=== PATIENT | female | born 1975 | race Caucasian/White ===

== ENCOUNTER 2016-05-01 08:57 | Emergency (ER) | payer OTHER ==
[~2016-05-01] VITALS: Ht 175.3 cm; Wt 91.4 kg
[~2016-05-01 08:57] MED LIST: CELE100C PO; CYCL-36 PO; LORT5TAB PO; NEXI20CA PO; TRAZ50TA4 PO
[2016-05-01 09:01] VITALS: BP 128/94; PULSE 97; RESP 16; TEMP 98.1; O2SAT 98
[2016-05-01] MEDS ORDERED: PRIS50TA PO (09:23)
[2016-05-01] MEDS ORDERED: CELE100C PO (09:23)
--- NOTE | 2016-05-01 09:35 | PD ---
HPI Chief Complaint: Cold / Flu Symptoms Time Seen by Provider: 09:33 Travel History International Travel<30 days: No Contact w/Intl Traveler<30days: No Traveled to known affect area: No History of Present Illness HPI Patient presents with complaints of mild dyspnea and subjective fever since . Denies nausea vomiting or diarrhea. No new rashes. Reports concerns of bleach exposure, states a colleague cleaned with 90% bleach and 10% water and that was overwhelming and caused an episode of nausea and vomiting. No tobacco exposure. No history of lung disease. PFSH Past Medical History Hx Anticoagulant Therapy: No Anxiety: Yes Depression: Yes Cerebrovascular Accident: Yes (CVA) Diabetes: No Diminished Hearing: No Gastrointestinal Disorders: Yes (GASTRIC BYPASS 2005) Headaches: Yes Hypertension: Yes Musculoskeletal: Yes (FIBROMYALGIA) Neurologic: Yes (LAM'S PALSEY/TIA?) Tetanus Vaccination: < 5 Years Influenza Vaccination: No ?: Not LMP: 09/2010 Menopausal: Yes : 2 Para: 2 Tubal Ligation: Yes Past Surgical History Abdominal Surgery: Yes (GASTRIC BYPASS-HERNIA REPAIR) Section: Yes (X2) Cholecystectomy: Yes Eye Surgery: Yes (LASIK ) Social History Alcohol Use: Yes (OCCAS. WINE; 1 week ago) Tobacco Use: Yes ("social smoker") Substance Use: No Allergies-Medications (Allergen,Severity, Reaction): Coded Allergies: Tramadol (Verified Allergy, Severe, 05/01/16) Reported Meds & Prescriptions Reported Meds & Active Scripts Active Reported Celebrex (Celecoxib) 100 Mg Cap 100 Mg PO DIRECTED Pristiq 24 HR (Desvenlafaxine ER 24 HR) 50 Mg Tab 50 Mg PO DAILY Review of Systems General / Constitutional: No: Fever Eyes: No: Visual changes HENT: No: Headaches Cardiovascular: No: Chest Pain or Discomfort Respiratory: Positive: Cough, Shortness of Breath Gastrointestinal: No: Abdominal Pain Genitourinary: No: Dysuria Musculoskeletal: No: Pain Skin: No Rash Neurologic: No: Weakness Psychiatric: No: Depression Endocrine: No: Polydipsia Hematologic/Lymphatic: No: Easy Bruising Physical Exam Narrative GENERAL: Well-nourished, well-developed patient. SKIN: Warm and dry. HEAD: Normocephalic. EYES: No scleral icterus. No injection or drainage. NECK: Supple, trachea midline. No JVD or lymphadenopathy. CARDIOVASCULAR: Regular rate and rhythm without murmurs, gallops, or rubs. RESPIRATORY: Breath sounds equal bilaterally. No accessory muscle use. GASTROINTESTINAL: Abdomen soft, non-tender, nondistended. MUSCULOSKELETAL: No cyanosis, or edema. BACK: Nontender without obvious deformity. No CVA tenderness. Data Data Last Documented VS Vital Signs Date Time Temp Pulse Resp B/P Pulse Ox O2 Delivery O2 Flow Rate FiO2 05/01/16 09:18 18 98 Room Air 05/01/16 09:01 98.1 97 128/94 Orders Chest, Single Ap (05/01/16 ) [facility] Medical Decision Making Medical Screen Exam Complete: Yes Emergency Medical Condition: Yes Differential Diagnosis Bacterial pneumonia, aspiration pneumonia, upper respiratory infection Narrative Course Assessment and plan discussed with patient at bedside Diagnosis Primary Impression: Cough Patient Instructions: General Instructions Additional Instructions: Rest fluids and Motrin, antibiotic and cough suppressant as prescribed. Follow- up with PCP. Med/Other Pt SpecificInfo: Prescription(s) given Scripts Guaifenesin-Codeine Liq (Cheratussin AC Liq)100-10 Mg/5 Ml Syrp5-10 Ml PO Q4H PRN (COUGH AND COLD SYMPTOMS) #120 ML Ref 0 Do not exceed 6 doses/24 hrs. Prov:Walter Zhang MD 05/01/16 Azithromycin (Zithromax Z-Epifanio)250 Mg [id number] Mg PO DIRECTED #1 DSPK Ref 0 500 MG (2 tabs) day 1, then 1 tab days 2-5. Prov:Walter Zhang MD 05/01/16 Disposition: 01 DISCHARGE HOME Condition: Good Walter Zhang MD May 01, 2016 09:35
--- NOTE | 2016-05-01 09:49 | RADHPO ---
EXAM DATE/TIME: 05/01/2016 09:26 [facility] COMPARISON: No previous studies available for comparison. INDICATIONS : Nausea, cough and short of breath. MEDICAL HISTORY : None. SURGICAL HISTORY : None. ENCOUNTER: Initial ACUITY: 3 days PAIN SCORE: 3/10 LOCATION: Bilateral chest FINDINGS: A single view of the chest demonstrates the lungs to be symmetrically aerated without evidence of mas s, infiltrate or effusion. The cardiomediastinal contours are unremarkable. Osseous structures are intact. CONCLUSION: No acute disease. Damien Taveras MD on May 01, 2016 at 9:47 Board Certified Radiologist. This report was verified electronically.
[2016-05-01] MEDS ORDERED: CHERSYP2 PO (10:02)
[2016-05-01] MEDS ORDERED: ZITHTAB PO (10:02)
== END 2016-05-01 10:20 | disposition home or self-care (01) ==
LOC: PHED 08:57
DX: R05 Cough (principal); I10 Essential (primary) hypertension; M79.7 Fibromyalgia; Z86.73 Personal history of transient ischemic attack (TIA), and cerebral infarction without residual deficits; Z72.0 Tobacco use
CPT/HCPCS: 71010; 99284

== ENCOUNTER 2017-01-04 15:07 | Emergency (ER) | payer OTHER ==
[~2017-01-04] VITALS: Ht 172.7 cm; Wt 89.0 kg
[~2017-01-04 15:07] MED LIST changes: +CHERSYP2 PO; -CYCL-36 PO; -LORT5TAB PO; -NEXI20CA PO; +PRIS50TA PO; -TRAZ50TA4 PO; +ZITHTAB PO
[2017-01-04 15:11] VITALS: BP 123/88; PULSE 96; RESP 14; TEMP 99.1; O2SAT 97
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
[2017-01-04] MEDS ORDERED: PRED20 PO (15:59)
[2017-01-04] MEDS ORDERED: predniSONE 20 MG TAB PO ONE (16:00)
[2017-01-04] MEDS ORDERED: KETOROLAC TROMETHAMINE 60 MG/2 ML (IM) VIAL IM ONE (16:00)
== END 2017-01-04 16:05 | disposition home or self-care (01) ==
LOC: NEPK 15:07
DX: S39.012A Strain of muscle, fascia and tendon of lower back, initial encounter (principal); V89.2XXA Person injured in unspecified motor-vehicle accident, traffic, initial encounter
CPT/HCPCS: 96372; 99284; J1885; J7512

== ENCOUNTER → 2017-07-12 | Outpatient (CLI) | payer OTHER ==
[~2017-07-12] MED LIST changes: +DULO20 PO; +HYDR-3580 PO; +MELO7.5T27 PO; +OXYC1CAP PO; +PRED20 PO; +REST15CA PO; +TRAZ100T10 PO
[2017-07-12 08:50] LABS: EOSINOPHIL # 0.2 TH/MM3 (0-0.4); EOSINOPHIL % 4.4 % (0.0-4.0); HEMATOCRIT 38.3 % (35.0-46.0); HEMOGLOBIN 12.8 GM/DL (11.6-15.3); LYMPH % 36.2 % (9.0-44.0); LYMPHOCYTE # 1.5 TH/MM3 (1.0-4.8); MEAN CELL VOLUME 91.7 FL (80.0-100.0); MEAN CORPUSCULAR HEMOGLOBIN 30.6 PG (27.0-34.0); MEAN CORPUSCULAR HGB CONC 33.4 % (32.0-36.0); MEAN PLATELET VOLUME 8.1 FL (7.0-11.0); MONO % 9.2 % (0.0-8.0); MONOCYTE # 0.4 TH/MM3 (0-0.9); NEUT % 49.2 % (16.0-70.0); PLATELET COUNT 232 TH/MM3 (150-450); RED BLOOD COUNT 4.18 MIL/MM3 (4.00-5.30); RED CELL DISTRIBUTION WIDTH 13.9 % (11.6-17.2); WHITE BLOOD COUNT 4.1 TH/MM3 (4.0-11.0)
[2017-07-12 08:56] LABS: BACTERIA, URINE RARE /hpf; BILIRUBIN, URINE NEG (NEG); BLOOD, URINE TRACE (NEG); GLUCOSE,URINE NEG (NEG); KETONE, URINE NEG (NEG); MUCUS URINE FEW /lpf (OCC); NITRITE,URINE NEG (NEG); PH, URINE 7.5 (5.0-8.5); SQUAMOUS EPITHELIAL CELL URINE 3 /hpf (0-5); URINE COLOR YELLOW (YELLW/STRAW); URINE LEUKOCYTE ESTERASE NEG (NEG)
[2017-07-12 08:59] LABS: INTERNATIONAL NORMALIZED RATIO 1.1 RATIO; PROTHROMBIN TIME - PATIENT 10.7 SEC (9.8-11.6)
[2017-07-12 09:24] LABS: ALBUMIN 3.7 GM/DL (3.4-5.0); AST (GOT) 38 U/L (15-37); BICARBONATE 28.6 MEQ/L (21.0-32.0); BLOOD UREA NITROGEN 8 MG/DL (7-18); CALCIUM 8.7 MG/DL (8.5-10.1); CHLORIDE 107 MEQ/L (98-107); CREATININE 0.71 MG/DL (0.50-1.00); GLOMERULAR FILTRATION RATE 89 ML/MIN (>89); GLUCOSE,FASTING 83 MG/DL (74-99); SODIUM (NA) 142 MEQ/L (136-145)
[2017-07-12 09:25] LABS: ALT (GPT) 80 U/L (10-53)
[2017-07-12 09:27] LABS: ALKALINE PHOSPHATASE 115 U/L (45-117); TOTAL BILIRUBIN ADULT 0.5 MG/DL (0.2-1.0); TOTAL PROTEIN 6.8 GM/DL (6.4-8.2)
--- NOTE | 2017-07-12 10:15 | RADRPT ---
EXAM DATE/TIME: 07/12/2017 09:19 [facility] COMPARISON: CHEST SINGLE AP, May 01, 2016, 9:26. INDICATIONS : Evaluate for pneumonia, pneumothorax or communicable disease. Pre op lumbar laminectomy. MEDICAL HISTORY : None. SURGICAL HISTORY : None. ENCOUNTER: Initial ACUITY: 1 day PAIN SCORE: 0/10 LOCATION: Bilateral chest FINDINGS: PA and lateral views of the chest demonstrate the lungs to be symmetrically aerated without evidence of mass, infiltrate or effusion. The cardiomediastinal contours are unremarkable. Osseous structure s are intact. CONCLUSION: No acute disease. Roberto Lea MD on July 12, 2017 at 10:13 Board Certified Radiologist. This report was verified electronically.
== END ==
LOC: CPRE 08:16
PROVIDERS: ATTEND Neurological Surgery
DX: Z01.812 Encounter for preprocedural laboratory examination (principal); Z01.818 Encounter for other preprocedural examination; M43.10 Spondylolisthesis, site unspecified
CPT/HCPCS: 36415; 71046; 80053; 81001; 85025; 85610; 85730; 87640; 87641

== ENCOUNTER 2017-07-25 06:48 | Inpatient (IN) | payer OTHER ==
[~2017-07-25] VITALS: Ht 175.3 cm; Wt 91.9 kg
[~2017-07-25 06:48] MED LIST changes: -CELE100C PO; -CHERSYP2 PO; -PRED20 PO; -PRIS50TA PO; -ZITHTAB PO
[2017-07-25] MEDS ORDERED: LACTATED RINGER'S 1000 ML IV PRN (07:15)
[2017-07-25] MEDS ORDERED: CHLORHEXIDINE GLUCONATE 2 % 1 PACK (2 CLOTHS) TOPICAL PRN (07:15)
[2017-07-25] MEDS ORDERED: SODIUM CHLORID 0.9% 500 ML IV PRN (07:15)
[2017-07-25] MEDS ORDERED: POVIDONE IODINE 5% (ANTISEPSIS KIT) 4 APPLICATIONS EACH NARE PRN (07:15)
[2017-07-25] MEDS ORDERED: METOPROLOL TARTRATE 25 MG TAB PO PRN (07:15)
[2017-07-25] MEDS ORDERED: VANCOMYCIN 1 GM/200 ML PREMIX ON-CALL IV SCH (07:15)
[2017-07-25] MEDS ORDERED: ARTIFICIAL TEARS OPTH OINT 3.5 APPLIC/3.5 GM TUBO ONE (07:29)
[2017-07-25] MEDS ORDERED: ACETAMINOPHEN 1000 MG/100 ML 100 ML IV ONE ×2 (07:29→14:43)
[2017-07-25] MEDS ORDERED: PROPOFOL 500 MG/50 ML INJ 150 ML ONE (07:29)
[2017-07-25] MEDS ORDERED: THROMBIN (TOPICAL) 5,000 UNIT VIAL ONE ×2 (08:32→10:04)
[2017-07-25] MEDS ORDERED: GELFOAM SIZE 100 ONE (08:32)
[2017-07-25] MEDS ORDERED: GENTAMICIN SULFATE 80 MG/2 ML VIAL ONE (08:33)
[2017-07-25] MEDS ORDERED: VANCOMYCIN HCL 1000 MG VIAL ONE (09:12)
[2017-07-25] MEDS ORDERED: ceFAZolin 2 GM PREMIX 50 ML ONE (09:13)
[2017-07-25] MEDS ORDERED: BUPIVACAINE HCL PF 0.5% 30 ML VIAL ONE (09:13)
[2017-07-25] MEDS ORDERED: DEXAMETHASONE SOD PHOS 4 MG/ML VIAL IV ONE (12:00)
[2017-07-25] MEDS ORDERED: LACTATED RINGER'S 1000 ML INJ 2,000 ML IV ONE (12:00)
[2017-07-25] MEDS ORDERED: LIDOCAINE HCL 1% PF 5 ML SYRINGE OTHER ONE (12:00)
[2017-07-25] MEDS ORDERED: ROCURONIUM INJ 50 MG/5 ML SYRINGE IV PUSH ONE (12:00)
[2017-07-25] MEDS ORDERED: PROPOFOL 200 MG/20 ML AMP IV ONE (12:00)
[2017-07-25] MEDS ORDERED: ONDANSETRON HCL 4 MG/2 ML VIAL IV ONE (12:00)
[2017-07-25] MEDS ORDERED: PHENYLEPH/NS 1000 MCG/10 ML SYR IV ONE (12:00)
[2017-07-25] MEDS ORDERED: NALOXONE HCL 0.4 MG/ML AMP IV PUSH PRN (13:45)
[2017-07-25] MEDS ORDERED: diphenhydrAMINE HCL 50 MG/ML VIAL IV PUSH PRN (13:45)
[2017-07-25] MEDS ORDERED: DO NOT ADM ANY ANTICOAGULANT DRUGS PRN (13:48)
[2017-07-25] MEDS: PCA - TOTAL MG DILAUDID DELIVERED PER SHIFT SCH ×2 (14:00→22:00)
[2017-07-25] MEDS ORDERED: *morphine SULFATE 4 MG/ML PERIprocedure ONLY ONE ×3 (14:10→14:30)
[2017-07-25] MEDS ORDERED: *MEPERIDINE 25 MG INJ VIAL PERIprocedural Use ONLY ONE (14:19)
--- NOTE | 2017-07-25 14:22 | PD.OP ---
Operative Report Date of Surgery: July 25, 2017 Preoperative Diagnosis: L4-5 spondylolisthesis Postoperative Diagnosis: L4-5 spondylolisthesis Procedure: L4-L5 laminectomy, interbody arthrodhesis using PEEK cage and autologous bone graft, L4-L5 instrumental fixation using transpedicular screws and rods, L4-L5 posterolateral fusion using autologous bone graft and demineralized bone matrix. Microsurgical dissection Anesthesia: general Surgeon: Des Vega Traffic Routing Engineer(s): Sheryl Spain Operation and Findings: INDICATIONS FOR THE SURGICAL PROCEDURE Ms Machuca is a 42 year-old female who presented with intractable mechanical back pain and ariane evidence of L5 lower extremity radiculopathy. The patient has failed maximum nonsurgical management including multiple modalities of conservative treatment as well as pain management interventions by an interventional pain specialist. A surgical decompression and arthrodhesis were indicated as a last resort. The [id number] details of the procedure, indications, alternatives, risks and potential complications were fully discussed with the patient. The patient fully understood. All the questions were answered. No guarantees were given. The patient voiced requesting the procedure and provided informed consents. The patient was offered the alternative of delaying the procedure and continuing with nonsurgical management. DETAILS OF THE SURGICAL PROCEDURE Prior to the procedure, the surgical incision was marked in the preoperative surgical holding room, and the procedure, risks, and potential complications revisited with the patient. Placement of electrodes for intraoperative neurophysiological monitoring was completed. The patient was taken to the operative room, and following induction of general anesthesia, endotracheal intubation was performed. A Winn catheter, bilateral ARRON hose and sequential compression devices were placed and kept throughout the procedure. The patient was positioned prone, over a Benedict table over a bolsters. All pressure in the preoperative surgical holding room points were carefully padded with eggcrate and gel mattress. The eyes were tapped shut after ointment was applied by the anesthesiologist to prevent corneal abrasion. A Shanae hugger was placed over the expossed lower body to maintain control of the core body temperature. The electrophysiological team placed the needles and electrodes in their proper location and baseline SSEP's and EMG potentials were registered. The entrance to each pedicles was marked using a C arm. The lumbar region was prepped and draped in the usual sterile fashion. The surgical procedure was performed in several steps as follow: SURGICAL APPROACH Once the patient was positioned, a localizing cross-table lateral x-ray was performed with a C-arm. Two paramedian small incisions were outlined on the skin approximately 3cm from the midline. The skin incisions were made with a # 10 blade. Small bleeders were controlled with the cautery. The dissection was then carried out into deper planes and through the thoracolumbar fascia with a Bovie. The intermuscular septum was identified and the myscles were blunted dissected along the septum. The facets and transverse process of L4 and L5 were exposed and the proper anatomical landmarks were identified. A microsurgical self-retaining retractor was placed on the incision, and a localizing lateralizing cross-table x-ray was performed with an instrument underneath a lamina of L4. INSTRUMENTAL FIXATION At this point in the procedure, placement of bilateral transpedicular screws was necessary for stabilization of the spine. Initially, the entry point for the screw was selected anatomically at the junction of the facet, with the transverse process, and the pars interarticularis at L4 and L5. This was started with a Giamshetti needle followed by the use of a cutler wire. A tap was used to create the threads for the screws. Finally bilateral transpedicular screws were carefully placed bilaterally at L4, and L5 under fluoroscopic visualization. An appropriate purchase was achieved with all screws. The position of each screw was assessed anatomically with an AP, lateral , oblique Xrays. An intraoperative scan view of the spine was then performed using the iso-centric c-arm. Each screw was then assessed electrophysiologically stimulating each screw with a nerve stimulator. SURGICAL DECOMPRESSION There was significant mass effect with compression of the neural structures. In order to relieve neural compression, it was necessary to perform a decompressive laminectomy, with decompression of the spinal canal and bilateral lateral recesses. Note that the scope of such decompression was significantly more extensive than the minimal exposure necessary to perform an interbody fusion, as there was extreme facet arthropathy with near complete collapse of the disk spaces and severe stenosis cause by the hyperthrophic joint facets. At this point of the procedure the operative microscope was draped in the usual sterile fashion and brought to the field. The rest of the surgical procedure was performed using microdissection technique with the exception of the closure. Under the operating microscope, a decompressive laminectomy was carried out at L4-L5 as follow: The laminae, base of the spinous processes and facets were carefully drilled exposing the ligamentum flavum. The facets were abnormal with severe spondylolisthesis and gross mechanical instability. A large disk protusion was compressing the neural structures and exiting nerve roots. A near complete facetectomy was necessary resulting in further mechanical instability. The ligamentum flavum appeared hypertrophic, resulting on mass effect on the dorsal surface of the neural structures. The superior free border of the ligamentum flavum was elevated with a ligament dissector and the ligamentum flavum was removed with a 3 and 4 mm Kerrison forceps. The ligament was very adherent to the dural sac and during the dissection, and extreme care was taken during the dissection. The exiting nerve roots were identified, and a wide foraminotomy was performed with a Kerrison in their trajectory towards the neural foramen. Epidural veins located laterally to the dural sac were coagulated with the bipolar cautery, and then incised using microscissors. Gentle medial retraction of the dural sac allowed me to expose the disc space for the discectomy. Upon completion of the discectomy, an excellent decompression of the neural structures was achieved. INTERBODY ARTHRODHESIS In order to correct the narrowing of the disk space and maintain distraction of the space, and to achieve a solid interbody fusion, it was necessary the insertion of an interbody device into the disk space. Otherwise, the disk space would collapse, compromising the result of the surgical procedure. At this point of the procedure, the annulus fibrosus of the disk was carefully coagulated with a bipolar cautery and incised using an 11 bladed knife. Then, a microdiscectomy was carried out in a standard fashion using a combination of straight and up-biting pituitary forceps. A reverse angle curette was applied underneath the posterior longitudinal ligament, and used to push the disk fragments into the disk space, so they can be safely removed with a pituitary forceps. Once the discectomy was completed, it was necessary to decorticate the endplates, in order to eliminate the cartilaginous endplate and to expose healthy bone appropriate to perform the interbody fusion. The endplates at L4- L5 were then thoroughly decorticated using increasing size bone mar and ring curets, eliminating the cartilaginous fragments from both, the superior and inferior endplates. A disk space distractor was applied to the pedicle screws and gentle distraction was applied. This maneuver was assisted by the use of a disk distractor. Increased motility was noted at the disk, which was consistent with instability due to facet arthropathy. Once a thorough preparation of the disk space was achieved, the disk space was irrigated with antibiotic solution, and the interbody fusion was performed by carefully impacting an expandable PPEK cage filled with autologous bone graft. A solid position of the cage with good purchase was achieved. The position of the cage was assessed anatomically with a probe and radiologically with the C-arm. POSTEROLATERAL FUSION The posterolateral fusion is a critical component to the procedure, to prevent future fatigue and failure of the instrumental fixation. Initially, the transverse processes of the vertebral bodies, lateral surface of the facets and the lateral gutters of the spine were carefully cleaned, eliminating all soft tissue and muscle attachments. The area was then irrigated with a large amount of antibiotic solution. Subsequently, the transverse processes, lateral surface of the facets, and lateral gutters of the spine were thoroughly decorticated using the TPS drill with a 5mm cutting bhupendra, exposing cancellous bone, in preparation for the posterolateral fusion. The incision was again irrigated with antibiotic solution. Then, the posterolateral fusion was then performed by carefully packing the lateral gutters of the spine at L4-L5 with autologous bone combined with demineralized bone matrix. I packed as much bone as possible. COMPLETION OF THE INSTRUMENTATION AND CLOSURE The rods were brought to the field, applied to all the screws, and the screw caps were sequentially applied. Compression was performed between the pedicle screws, and final tightening of the screws was completed using a torque wrench. The incision was again thoroughly irrigated with several liters of antibiotic solution, and hemostasis secured with the bipolar cautery. A Valsalva Maneuver performed by the anesthesiologist failed to show any evidence of cerebrospinal fluid leak or bleeding. A 7 mm Benedict-Steward drain was left in the epidural space and externalized through a separate stab incision. The incision was then closed in planes. 0 Vicryl was used in an interrupted fashion to close the thoracolumbar fascia and the superficial fascia. The subcutaneous tissue was then approximated using 3-0 Vicryl in an interrupted fashion. Special care was taken to avoid space. The skin was then closed with 4-0 Vicryl in a running, subcuticular fashion. Dermabond was applied to the skin. Each plane of closure was irrigated with antibiotic solution. At the end of the procedure the sponge, needle and instrument counts were all correct. Estimated blood loss was 250 cc. No blood transfusion was given. The entire procedure was performed using continuous electrophysiological monitoring of the somatosensorial evoked potentials and EMG. The patient received prophylactic antibiotics. The patient was then extubated and transferred to the recovery room in stable condition. Des Vega MD July 25, 2017 14:22
[2017-07-25] MEDS: SODIUM CHLOR 0.9% 1000 ML INJ 1,000 ML IV SCH (14:24)
[2017-07-25] MEDS ORDERED: MIDAZOLAM HCL 2 MG/2 ML VIAL ONE (14:26)
[2017-07-25] MEDS ORDERED: ACETAMINOPHEN 325 MG TAB PO PRN (14:30)
[2017-07-25] MEDS ORDERED: MORPHINE SULFATE 4 MG/ML INJ IV PUSH PRN (14:30)
[2017-07-25] MEDS ORDERED: MAGNESIUM HYDROXIDE SUSP 30 ML CUP PO PRN (14:30)
[2017-07-25] MEDS ORDERED: RESP: ALBUTEROL 2.5 MG/3 ML NEB (PRN) INH (14:30)
[2017-07-25] MEDS ORDERED: MENTHOL LOZENGE BUCCAL PRN (14:30)
[2017-07-25] MEDS ORDERED: BISACODYL 10 MG SUPP RECTAL PRN (14:30)
[2017-07-25] MEDS ORDERED: cloNIDine HCL 0.1 MG TAB PO/NG PRN (14:30)
[2017-07-25] MEDS ORDERED: ONDANSETRON HCL 4 MG/2 ML VIAL IV PUSH PRN (14:30)
[2017-07-25] MEDS ORDERED: *HYDROmorphone PF 0.5 MG/0.5 ML PERIprocedure ONLY ONE ×2 (14:38→14:59)
--- NOTE | 2017-07-25 14:39 | RADRPT ---
EXAM DATE/TIME: 07/25/2017 10:02 [facility] COMPARISON: No previous studies available for comparison. INDICATIONS : L4-L5 posterior lumbar fusion. Level localization. MEDICAL HISTORY : None. SURGICAL HISTORY : None. ENCOUNTER: Initial ACUITY: 1 day PAIN SCORE: Non-responsive. LOCATION: Lumbar spine FINDINGS: A single lateral view is recorded digitally in the operating room using C-arm with localization pin i n place. CONCLUSION: Intraoperative image. Henry Stewart MD on July 25, 2017 at 14:37 Board Certified Radiologist. This report was verified electronically.
--- NOTE | 2017-07-25 14:39 | RADRPT ---
EXAM DATE/TIME: 07/25/2017 10:02 [place] COMPARISON: No previous studies available for comparison. INDICATIONS : Post-op L4-L5 posterior lumbar fusion. MEDICAL HISTORY : None. SURGICAL HISTORY : None. ENCOUNTER: Initial ACUITY: 1 day PAIN SCORE: Non-responsive. LOCATION: Lumbar spine. FINDINGS: 2 images are recorded digitally in the operating room using C-arm during placement of transpedicular screws and interspac device. CONCLUSION: Intraoperative images. Henry Stewart MD on July 25, 2017 at 14:37 Board Certified Radiologist. This report was verified electronically.
[2017-07-25] MEDS ORDERED: ACETAMINOPHEN 1000 MG/100 ML 100 ML IV PRN (15:45)
[2017-07-25] MEDS ORDERED: *LABETALOL HCL 100 MG/20 ML VIAL PERIprocedural Use ONLY ONE (15:46)
[2017-07-25] MEDS: CYCLOBENZAPRINE HCL 10 MG TAB PO PRN (16:01)
[2017-07-25] MEDS: ceFAZolin 2 GM PREMIX 50 ML IV SCH (17:00)
--- NOTE | 2017-07-25 17:08 | PD.CONS ---
[facility] By Dr. Des Vega MD Reason for Consult Medical management Primary Care Physician Non-Staff Diagnoses: History of Present Illness Patient is a 42-year-old female Who had a history of intractable mechanical back pain and ariane evidence of L5 lower extremity radiculopathy. Patient had failed nonsurgical management and underwent procedure today for the L4-L5 spondylolisthesis patient underwent a L4-L5 laminectomy, interbody arthrodesis using peek cage and autologous bone graft, L4-L5 instrumentation fixation using transpedicular screws and rods, L4-L5 posterior lateral fusion using autologous bone graft and demineralized bone matrix microsurgical dissection by Dr. Vega. Patient has an extensive past medical history including herniated disc, spinal stenosis degenerative disc disease history of a TIA, history of cerebrovascular accident, headaches, gastric bypass surgery in 2005, history of hernia repair, history of cholecystectomy, history of sections 2, and a hysterectomy , as well as a tubal ligation, also has a history of osteoarthritis and anxiety and depression and fibromyalgia. We have been asked to help regarding medical management and will be available for any other issues that arise throughout the admission. Review of Systems Constitutional: COMPLAINS OF: Fatigue, DENIES: Diaphoretic episodes, Fever, Weight gain, Weight loss, Chills, Dizziness, Change in appetite, Night Sweats Endocrine: DENIES: Abnorml menstrual pattern, Heat/cold intolerance, Polydipsia , Polyuria Eyes: DENIES: Blurred vision, Diplopia, Eye inflammation, Eye pain, Vision loss , Photosensitivity, Double Vision Ears, nose, mouth, throat: DENIES: Tinnitus, Hearing loss, Vertigo, Nasal discharge, Oral lesions, Throat pain, Hoarseness, Ear Pain, Running Nose, Epistaxis, Sinus Pain, Toothache, Odynophagia Respiratory: DENIES: Apneas, Cough, Snoring, Wheezing, Hemoptysis, Sputum production, Shortness of breath Cardiovascular: DENIES: Chest pain, Palpitations, Syncope, Dyspnea on Exertion , PND, Lower Extremity Edema, Orthopnea, Claudication Gastrointestinal: DENIES: Abdominal pain, Black stools, Bloody stools, Constipation, Diarrhea, Nausea, Vomiting Genitourinary: DENIES: Abnormal vaginal bleeding, Dysmenorrhea, Dyspareunia, Sexual dysfunction, Urinary frequency Musculoskeletal: COMPLAINS OF: Joint pain, Stiffness, Joint Swelling, Back pain , DENIES: Muscle aches, Neck pain Integumentary: DENIES: Abnormal pigmentation, Pruritus, Rash, Nail changes, Breast masses, Breast skin changes, Nipple discharge Hematologic/lymphatic: DENIES: Bruising, Lymphadenopathy Immunologic/allergic: DENIES: Eczema, Urticaria Neurologic: DENIES: Abnormal gait, Headache, Localized weakness, Paresthesias, Seizures, Speech Problems, Tremor, Poor Balance Psychiatric: COMPLAINS OF: Anxiety, Depression, DENIES: Confusion, Mood changes , Hallucinations, Agitation, Suicidal Ideation, Homicidal Ideation, Delusions Except as stated in HPI: all other systems reviewed are Neg Past Family Social History Allergies: Coded Allergies: tramadol (Verified Allergy, Severe, 07/25/17) Past Medical History Anxiety and depression History of herniated disc and spinal stenosis and degenerative disc disease as well as history of TIA History of headaches History of gastric bypass in 2005 History of hernia repair Cholecystectomy sections 2 Hysterectomy and tubal ligation Osteoarthritis Fibromyalgia Chronic pain Pierre's palsy, TIA Past Surgical History Lasix eye surgery Cholecystectomy Gastric bypass Hernia repair sections 2 Hysterectomy Tubal ligation Breast augmentation Abdominoplasty Reported Medications Reported Meds & Active Scripts Active Reported Restoril (Temazepam) 15 Mg Cap 15 Mg PO HS PRN Oxycodone (Oxycodone HCl) 5 Mg Cap 5 Mg PO Q4H PRN Hydrocodone-Acetaminophen 7.5 Mg-325 Mg Tab 1 Tab PO Q4H PRN Trazodone (Trazodone HCl) 100 Mg Tablet 100 Mg PO HS Meloxicam 7.5 Mg Tab 7.5 Mg PO DAILY Cymbalta DR (Duloxetine HCl) 20 Mg Capdr 20 Mg PO DAILY Active Ordered Medications Current Medications Vancomycin/Sodium Chloride 200 ml @ 200 mls/hr AFTER SCHOOL PROGRAM ASSISTANT IV Last administered on 07/25/17at 08:40; Start 07/25/17 at 07:15; Stop 07/28/17 at 07:14 Lactated Ringer's 1,000 ml @ 30 mls/hr Q24H PRN IV SEE LABEL COMMENTS Last administered on 07/25/17at 08:30; Start 07/25/17 at 07:15; Stop 07/28/17 at 07:14 Sodium Chloride 500 ml @ 30 mls/hr [id number] PRN IV SEE LABEL COMMENTS; Start 07/25/17 at 07:15; Stop 07/28/17 at 07:14 Metoprolol Tartrate (Lopressor) 25 mg AFTER SCHOOL PROGRAM ASSISTANT PRN PO SEE LABEL COMMENTS; Start 07/25/17 at 07:15; Stop 07/28/17 at 07:14 Povidone Iodine (Betadine 5% Antisepsis Kit) 1 applic AFTER SCHOOL PROGRAM ASSISTANT PRN EACH NARE SEE LABEL COMMENTS Last administered on 07/25/17at 08:30; Start 07/25/17 at 07:15; Stop 07/28/17 at 07:14 Chlorhexidine Gluconate (Chlorhexidine 2% Cloth) 3 pack AFTER SCHOOL PROGRAM ASSISTANT PRN TOPICAL SEE LABEL COMMENTS Last administered on 07/25/17at 07:30; Start 07/25/17 at 07:15; Stop 07/28/17 at 07:14 Artificial Tears (Lacrilube Opht Oint) 3.5 applic STK-MED ONCE .ROUTE ; Start at 07:29; Stop 07/25/17 at 07:30; Status DC Propofol 150 ml @ As Directed STK-MED ONCE .ROUTE ; Start 07/25/17 at 07:29; Stop 07/25/17 at 07:30; Status DC Acetaminophen 100 ml @ As Directed STK-MED ONCE IV ; Start 07/25/17 at 07:29; Stop 07/25/17 at 07:30; Status DC Thrombin (Thrombin Top Soln) 10,000 units STK-MED ONCE .ROUTE Last administered on 07/25/17at 11:00; Start 07/25/17 at 08:32; Stop 07/25/17 at 08:33; Status DC Gelatin (Gelfoam 100 Top) 1 foam STK-MED ONCE .ROUTE Last administered on at 11:00; Start 07/25/17 at 08:32; Stop 07/25/17 at 08:33; Status DC Gentamicin Sulfate (Gentamicin Inj) 240 mg STK-MED ONCE .ROUTE Last administered on 07/25/17at 11:00; Start 07/25/17 at 08:33; Stop 07/25/17 at 08:34; Status DC Vancomycin HCl (Vancomycin Inj) 1,000 mg STK-MED ONCE .ROUTE Last administered on 07/25/17at 11:30; Start 07/25/17 at 09:12; Stop 07/25/17 at 09:13; Status DC Cefazolin Sodium/ Dextrose 50 ml @ As Directed STK-MED ONCE .ROUTE Last administered on 07/25/17at 09:20; Start 07/25/17 at 09:13; Stop 07/25/17 at 09:14; Status DC Bupivacaine HCl (Marcaine Pf 0.5% Inj) 30 ml STK-MED ONCE .ROUTE Last administered on 07/25/17at 11:30; Start 07/25/17 at 09:13; Stop 07/25/17 at 09:14; Status DC Thrombin (Thrombin Top Soln) 5,000 units STK-MED ONCE .ROUTE Last administered on 07/25/17at 11:00; Start 07/25/17 at 10:04; Stop 07/25/17 at 10:05; Status DC Duloxetine HCl (Cymbalta Dr) 20 mg DAILY PO ; Start 07/26/17 at 09:00 Temazepam (Restoril) 15 mg HS PRN PO INSOMNIA; Start 07/25/17 at 21:00 Trazodone HCl (Desyrel) 100 mg HS PO ; Start 07/25/17 at 21:00 Naloxone HCl (Narcan Inj) 0.4 mg UNSCH PRN IV PUSH RESPIRATORY RATE LESS THAN 10; Start 07/25/17 at 13:45 Diphenhydramine HCl (Benadryl Inj) 25 mg Q6H PRN IV PUSH ITCHING; Start at 13:45 Hydromorphone HCl (Dilaudid MOTION PICTURE EQUIPMENT MACHINIST Inj) 6 mg UNSCH IV ; Start 07/25/17 at 13:45 MOTION PICTURE EQUIPMENT MACHINIST Dosage Infused (Pha) 1 Q8HR .XX ; Start 07/25/17 at 14:00 Morphine Sulfate (*morphine INJ PERIprocedure ONLY) 4 mg STK-MED ONCE .ROUTE Last administered on 07/25/17at 14:10; Start 07/25/17 at 14:10; Stop 07/25/17 at 14: 11; Status DC Morphine Sulfate (*morphine INJ PERIprocedure ONLY) 4 mg STK-MED ONCE .ROUTE Last administered on 07/25/17at 14:14; Start 07/25/17 at 14:14; Stop 07/25/17 at 14: 15; Status DC Meperidine HCl (*DEMEROL INJ PERIprocedural ONLY) 25 mg STK-MED ONCE .ROUTE Last administered on 07/25/17at 14:19; Start 07/25/17 at 14:19; Stop 07/25/17 at 14: 20; Status DC Sodium Chloride 1,000 ml @ 100 mls/hr Q10H IV Last administered on 07/25/17at 14 :24; Start 07/25/17 at 14:24 Cefazolin Sodium/ Dextrose 50 ml @ 100 mls/hr Q8H IV ; Start 07/25/17 at 17:00; Stop 07/26/17 at 09:29 Bisacodyl (Dulcolax Supp) 10 mg DAILY PRN RECTAL SEVERE CONSTIPATION; Start 07/25/17 at 14:30 Docusate Sodium (Colace) 100 mg BID PO ; Start 07/25/17 at 21:00 Magnesium Hydroxide (Milk Of Magnesia Liq) 30 ml DAILY PRN PO CONSTIPATION; Start 07/25/17 at 14:30 Pantoprazole Sodium (Protonix) 40 mg DAILY PO ; Start 07/26/17 at 09:00 Ondansetron HCl (Zofran Inj) 4 mg Q6H PRN IV PUSH NAUSEA OR VOMITING; Start 07/25/17 at 14:30 Morphine Sulfate (Morphine Inj) 2 mg Q2H PRN IV PUSH breakthrough pain; Start 07/25/17 at 14:30 Cyclobenzaprine HCl (Flexeril) 10 mg Q8H PRN PO MUSCLE SPASM Last administered on 07/25/17at 16:01; Start 07/25/17 at 14:30 Clonidine (Catapres) 0.1 mg Q6H PRN PO/NG SYS BP GREATER THAN 170 MMHG; Start 07/25/17 at 14:30 Acetaminophen (Tylenol) 650 mg Q4H PRN PO TEMPERATURE > 101.5 F; Start 07/25/17 at 14:30 Menthol (Elkin Bianca) 1 lozenge UNSCH PRN BUCCAL SORE THROAT; Start 07/25/17 at 14 :30 Albuterol Sulfate (Albuterol Neb) 2.5 mg Q4HR NEB PRN INH WHEEZING; Start at 14:30 Chlorhexidine Gluconate (Hibiclens 4% Top Soln) 1 applic HS TOP ; Start 07/25/17 at 21:00; Stop 07/27/17 at 21:01 Acetaminophen/ Hydrocodone Bitart ([place] 10-325 Mg) 1 tab Q4H PRN PO PAIN SCALE 3 TO 5; Start 07/25/17 at 14:30 Acetaminophen/ Hydrocodone Bitart ([place] 10-325 Mg) 2 tab Q4H PRN PO PAIN SCALE 6 TO 10; Start 07/25/17 at 14:30 Fentanyl Citrate (fentaNYL INJ) 500 mcg STK-MED ONCE .ROUTE ; Start 07/25/17 at 14:25; Stop 07/25/17 at 14:26; Status DC Midazolam HCl (Versed Inj) 4 mg STK-MED ONCE .ROUTE ; Start 07/25/17 at 14:26; Stop 07/25/17 at 14:27; Status DC Morphine Sulfate (*morphine INJ PERIprocedure ONLY) 4 mg STK-MED ONCE .ROUTE Last administered on 07/25/17at 14:30; Start 07/25/17 at 14:30; Stop 07/25/17 at 14: 31; Status DC Hydromorphone HCl (*DILAUDID PF INJ PERIprocedure ONLY) 0.5 mg STK-MED ONCE .ROUTE Last administered on 07/25/17at 14:38; Start 07/25/17 at 14:38; Stop at 14:39; Status DC Acetaminophen 100 ml @ As Directed STK-MED ONCE IV Last administered on at 14:43; Start 07/25/17 at 14:43; Stop 07/25/17 at 14:44; Status DC Hydromorphone HCl (*DILAUDID PF INJ PERIprocedure ONLY) 0.5 mg STK-MED ONCE .ROUTE Last administered on 07/25/17at 14:59; Start 07/25/17 at 14:59; Stop at 15:00; Status DC Miscellaneous Information ([facility] Nursing Information) ALL NURSING DEPARTME... UNSCH PRN .XX SEE LABEL COMMENTS; Start 07/25/17 at 13:48; Stop 07/26/17 at 13:47 Acetaminophen 100 ml @ 400 mls/hr Q6H PRN IV PAIN 1-2; Start 07/25/17 at 15:45 Labetalol HCl (*TRANDATE INJ PERIprocedural Use ONLY) 100 mg STK-MED ONCE .ROUTE ; Start 07/25/17 at 15:46; Stop 07/25/17 at 15:47; Status DC Family History Tobacco abuse Possible hypertension Social History Tobacco abuse Social alcohol Chronic pain medications Denies any illicits Physical Exam Vital Signs Vital Signs Date Time Temp Pulse Resp B/P (MAP) Pulse Ox O2 Delivery O2 Flow Rate FiO2 07/25/17 15:30 124 12 116/73 (87) 97 Nasal Cannula 3 07/25/17 15:00 124 12 128/84 (99) 97 Nasal Cannula 3 07/25/17 14:45 117 12 118/80 (93) 98 Nasal Cannula 3 07/25/17 14:30 123 13 125/85 (98) 97 Nasal Cannula 4 07/25/17 14:15 122 12 131/93 (106) 98 Nasal Cannula 4 07/25/17 14:00 110 12 115/77 (90) 99 Nasal Cannula 4 07/25/17 13:46 97.6 111 12 124/85 (98) 89 Nasal Cannula 2 07/25/17 08:15 98.3 88 20 129/91 (104) 99 Physical Exam GENERAL: This is a well-nourished, well-developed patient, in no apparent distress. Seen in the PACU post surgery SKIN: No rashes, ecchymoses or lesions. Cool and dry. HEAD: Atraumatic. Normocephalic. No temporal or scalp tenderness. EYES: Pupils equal round and reactive. Extraocular motions intact. No scleral icterus. No injection or drainage. ENT: Nose without bleeding, purulent drainage or septal hematoma. Throat without erythema, tonsillar hypertrophy or exudate. Uvula midline. Airway patent. NECK: Trachea midline. No JVD or lymphadenopathy. Supple, nontender, no meningeal signs. CARDIOVASCULAR: Regular rate and rhythm without murmurs, gallops, or rubs. S1- S2 no S3 or S4 RESPIRATORY: Clear to auscultation. Breath sounds equal bilaterally. No wheezes , rales, or rhonchi. GASTROINTESTINAL: Abdomen soft, non-tender, nondistended. No hepato-splenomegaly , or palpable masses. No guarding. MUSCULOSKELETAL: Extremities without clubbing, cyanosis, or edema. No joint tenderness, effusion, or edema noted. No calf tenderness. Negative Homans sign bilaterally. Can move all 4 extremities NEUROLOGICAL: Awake and alert. Cranial nerves II through XII intact. Motor and sensory grossly within normal limits. Five out of 5 muscle strength in all muscle groups. Normal speech. Moves all 4 extremities Insight and judgment appears good at this time Mood and behavior is appropriate Bilateral breast augmentation Imaging Last Impressions Lumbar Spine X-Ray 07/25/17 0000 Signed Impressions: Service Date/Time: Tuesday, July 25, 2017 10:02 - CONCLUSION: Intraoperative image. Henry Stewart MD Assessment and Plan Assessment and Plan Status post L4-L5 laminectomy, interbody arthrodesis using peek cage and autologous bone graft, L4-L5 instrumentation all fixation using transpedicular screws and rods, L4-L5 posterior lateral fusion using autologous bone graft and demineralized bone matrix, and microsurgical dissection Herniated disc, spinal stenosis, degenerative disc disease, pain control per neurosurgery History of cerebrovascular accident, TIA and headaches versus Pierre's palsy monitor on monitor History of gastric bypass, hernia repair, cholecystectomy, C-sections 2, hysterectomy, tubal ligation Chronic anxiety and depression resume home medications Tobacco abuse recommend smoking cessation Fibromyalgia recommend continued medications at home for this except for pain control will defer that to neurosurgery Continue Cymbalta, trazodone and temazepam A.m. labs Code Status Full code Discussed Condition With Discussed with patient and RN Orlando Navarrete DO July 25, 2017 17:08
[2017-07-25 17:40] VITALS: BP 120/79; PULSE 115; RESP 18; TEMP 98.2; O2SAT 99
[2017-07-25] MEDS: HYDROmorphone HCL PCA 6 MG/30 ML IV SCH (18:15)
[2017-07-25 20:00] VITALS: BP 123/75; PULSE 110; RESP 20; TEMP 98.3; O2SAT 96
[2017-07-25] MEDS ORDERED: TEMAZEPAM 15 MG CAP PO PRN (21:00)
[2017-07-25] MEDS: CHLORHEXIDINE GLUCONATE 4% SOLN 120 ML BTL TOP SCH (22:04)
[2017-07-25] MEDS: DOCUSATE SODIUM 100 MG CAP PO SCH (22:04)
[2017-07-25] MEDS: traZODone HCL 100 MG TAB PO SCH (22:04)
[2017-07-26] VITALS: BP 92/60; PULSE 89; RESP 20; TEMP 98.3; O2SAT 95
[2017-07-26] MEDS: SODIUM CHLOR 0.9% 1000 ML INJ 1,000 ML IV SCH ×4 (00:24→22:15)
[2017-07-26] MEDS: ACETAMINOPHEN/HYDROcodone 325 MG/10 MG TAB PO PRN ×6 (00:52→23:10)
[2017-07-26] MEDS: CYCLOBENZAPRINE HCL 10 MG TAB PO PRN ×3 (00:52→17:56)
[2017-07-26] MEDS: ceFAZolin 2 GM PREMIX 50 ML IV SCH ×2 (00:54→09:13)
[2017-07-26 04:00] VITALS: BP 100/68; PULSE 89; RESP 20; TEMP 98.3; O2SAT 97
[2017-07-26] MEDS: PCA - TOTAL MG DILAUDID DELIVERED PER SHIFT SCH ×3 (05:38→22:00)
[2017-07-26 07:01] LABS: AUTOMATED NEUTROPHIL # 6.2 TH/MM3 (1.8-7.7); BASOPHIL % 0.3 % (0.0-2.0); EOSINOPHIL % 0.6 % (0.0-4.0); HEMATOCRIT 32.7 % (35.0-46.0); LYMPH % 17.8 % (9.0-44.0); LYMPHOCYTE # 1.5 TH/MM3 (1.0-4.8); MEAN CELL VOLUME 92.4 FL (80.0-100.0); MEAN CORPUSCULAR HGB CONC 33.5 % (32.0-36.0); MEAN PLATELET VOLUME 8.8 FL (7.0-11.0); MONO % 7.9 % (0.0-8.0); MONOCYTE # 0.7 TH/MM3 (0-0.9); NEUT % 73.4 % (16.0-70.0); PLATELET COUNT 167 TH/MM3 (150-450); RED BLOOD COUNT 3.55 MIL/MM3 (4.00-5.30); RED CELL DISTRIBUTION WIDTH 13.6 % (11.6-17.2); WHITE BLOOD COUNT 8.4 TH/MM3 (4.0-11.0)
[2017-07-26 07:35] LABS: ALBUMIN 2.9 GM/DL (3.4-5.0); ALT (GPT) 55 U/L (10-53); AST (GOT) 48 U/L (15-37); BICARBONATE 29.1 MEQ/L (21.0-32.0); BLOOD UREA NITROGEN 6 MG/DL (7-18); CHLORIDE 107 MEQ/L (98-107); CREATININE 0.66 MG/DL (0.50-1.00); GLOMERULAR FILTRATION RATE 97 ML/MIN (>89); GLUCOSE,RANDOM 96 MG/DL (74-106); MAGNESIUM 1.7 MG/DL (1.5-2.5); SODIUM (NA) 143 MEQ/L (136-145)
[2017-07-26 07:43] LABS: ALKALINE PHOSPHATASE 66 U/L (45-117); FREE T4 1.07 NG/DL (0.76-1.46); PHOSPHORUS 2.6 MG/DL (2.5-4.9); TOTAL BILIRUBIN ADULT 0.4 MG/DL (0.2-1.0); TOTAL PROTEIN 5.4 GM/DL (6.4-8.2)
[2017-07-26 08:00] VITALS: BP 96/51; PULSE 88; RESP 17; TEMP 98.2; O2SAT 98
[2017-07-26] MEDS: DOCUSATE SODIUM 100 MG CAP PO SCH ×2 (09:13→20:37)
[2017-07-26] MEDS: DULoxetine HCl DR 20 MG CAP PO SCH (09:13)
[2017-07-26] MEDS: PANTOPRAZOLE SOD 40 MG DELAYED RELEASE TAB PO SCH (09:13)
[2017-07-26] MEDS: HYDROmorphone HCL PCA 6 MG/30 ML IV SCH ×2 (09:23→18:24)
--- NOTE | 2017-07-26 11:54 | HHI.PR ---
Subjective Remarks Follow up back surgery. Patient sitting in chair, complaining of mild pain and numbness in left leg. Denies chest pain. Winn removed has not voided yet. Objective Vitals Vital Signs Date Time Temp Pulse Resp B/P (MAP) Pulse Ox O2 Delivery O2 Flow Rate FiO2 07/26/17 10:13 18 07/26/17 09:53 18 07/26/17 09:23 18 07/26/17 08:00 98.2 88 17 96/51 (66) 98 07/26/17 07:38 18 07/26/17 05:38 18 07/26/17 04:00 98.3 89 20 100/68 (79) 97 07/26/17 00:00 98.3 89 20 92/60 (71) 95 07/25/17 22:00 7 07/25/17 20:00 98.3 110 20 123/75 (91) 96 07/25/17 18:15 15 07/25/17 17:40 98.2 115 18 120/79 (93) 99 07/25/17 17:00 107 12 107/62 (77) 95 Nasal Cannula 3 07/25/17 16:00 97.0 121 12 119/75 (90) 95 Nasal Cannula 3 07/25/17 15:30 124 12 116/73 (87) 97 Nasal Cannula 3 07/25/17 15:00 124 12 128/84 (99) 97 Nasal Cannula 3 07/25/17 14:45 117 12 118/80 (93) 98 Nasal Cannula 3 07/25/17 14:30 123 13 125/85 (98) 97 Nasal Cannula 4 07/25/17 14:15 122 12 131/93 (106) 98 Nasal Cannula 4 07/25/17 14:00 110 12 115/77 (90) 99 Nasal Cannula 4 07/25/17 14:00 22 07/25/17 13:46 97.6 111 12 124/85 (98) 89 Nasal Cannula 2 I/O 07/25/17 07/25/17 07/25/17 07/26/17 07/26/17 07/26/17 07:00 15:00 23:00 07:00 15:00 23:00 Intake Total 1800 ml 209 ml 810 ml Output Total 800 ml 780 ml 1530 ml Balance 1000 ml -571 ml -720 ml Intake Oral 320 ml IV Total 209 ml 490 ml Other 1800 ml Output Urine Total 800 ml 700 ml 1500 ml Drainage Total 80 ml 30 ml # Bowel Movements 0 Result Diagram: 07/26/17 0554 07/26/1754 Objective Remarks GENERAL: Sitting in chair, mild pain, with network technology instructor CARDIOVASCULAR: Regular rate and rhythm. RESPIRATORY: No accessory muscle use. Clear to auscultation. Breath sounds equal bilaterally. GASTROINTESTINAL: Abdomen soft, non-tender, nondistended. Hepatic and splenic margins not palpable. MUSCULOSKELETAL: Extremities without clubbing, cyanosis, or edema. No obvious deformities. pedal edema, numbness in left lower extremity, pulses palpable Urinary Catheter: No Vascular Central Line Catheter: No A/P Assessment and Plan S/P L4-L5 laminectomy by Dr. Vega, interbody arthrodesis using peek cage and autologous bone graft, L4-L5 instrumentation all fixation using transpedicular screws and rods, L4-L5 posterior lateral fusion using autologous bone graft and demineralized bone matrix, and microsurgical dissection -Plan per neurosurgery -LSO brace -Pain control per neurosurgery Chronic anxiety and depression -Cont home medications Tobacco abuse -recommend smoking cessation Fibromyalgia , chronic -continued medications at home for this except for pain control will defer that to neurosurgery -Continue Cymbalta, trazodone and temazepam Discharge Planning Per neurosurgery Edel Whitley July 26, 2017 11:54
[2017-07-26 12:15] VITALS: BP 114/58; PULSE 111; RESP 19; TEMP 98.3; O2SAT 98
--- NOTE | 2017-07-26 12:39 | HHI.NSPN ---
(Obdulia Sandoval) Note Status Status: Progress Note (Obdulia Sandoval) Interval History Interval History Ms. Machuca underwent a L4-L5 laminectomy, interbody arthrodesis using PEEK cage and autologous bone graft, L4-L5 instrumental fixation using transpedicular screws and rods, L4-L5 posterolateral fusion using autologous bone graft and demineralized bone matrix, microsurgical dissection on July 25, 2017 for L4-5 spondylolisthesis. 07/26: reports minimal achiness in her legs with paresthesias, surgical pain controlled on FOOD MIXER REPAIRER. (Obdulia Sandoval) Labs, Micro, & Vital Signs Results Date Time Temp Pulse Resp B/P (MAP) Pulse Ox O2 Delivery O2 Flow Rate FiO2 07/26/17 12:15 98.3 111 19 114/58 (76) 98 07/26/17 10:13 18 07/26/17 09:53 18 07/26/17 09:23 18 07/26/17 08:00 98.2 88 17 96/51 (66) 98 07/26/17 07:38 18 07/26/17 05:38 18 07/26/17 04:00 98.3 89 20 100/68 (79) 97 07/26/17 00:00 98.3 89 20 92/60 (71) 95 07/25/17 22:00 7 07/25/17 20:00 98.3 110 20 123/75 (91) 96 07/25/17 18:15 15 07/25/17 17:40 98.2 115 18 120/79 (93) 99 07/25/17 17:00 107 12 107/62 (77) 95 Nasal Cannula 3 07/25/17 16:00 97.0 121 12 119/75 (90) 95 Nasal Cannula 3 07/25/17 15:30 124 12 116/73 (87) 97 Nasal Cannula 3 07/25/17 15:00 124 12 128/84 (99) 97 Nasal Cannula 3 07/25/17 14:45 117 12 118/80 (93) 98 Nasal Cannula 3 07/25/17 14:30 123 13 125/85 (98) 97 Nasal Cannula 4 07/25/17 14:15 122 12 131/93 (106) 98 Nasal Cannula 4 07/25/17 14:00 110 12 115/77 (90) 99 Nasal Cannula 4 07/25/17 14:00 22 07/25/17 13:46 97.6 111 12 124/85 (98) 89 Nasal Cannula 2 Constitutional Vital Signs Date Time Temp Pulse Resp B/P (MAP) Pulse Ox O2 Delivery O2 Flow Rate FiO2 07/26/17 12:15 98.3 111 19 114/58 (76) 98 07/26/17 10:13 18 07/26/17 09:53 18 07/26/17 09:23 18 07/26/17 08:00 98.2 88 17 96/51 (66) 98 07/26/17 07:38 18 07/26/17 05:38 18 07/26/17 04:00 98.3 89 20 100/68 (79) 97 07/26/17 00:00 98.3 89 20 92/60 (71) 95 07/25/17 22:00 7 07/25/17 20:00 98.3 110 20 123/75 (91) 96 07/25/17 18:15 15 07/25/17 17:40 98.2 115 18 120/79 (93) 99 07/25/17 17:00 107 12 107/62 (77) 95 Nasal Cannula 3 07/25/17 16:00 97.0 121 12 119/75 (90) 95 Nasal Cannula 3 07/25/17 15:30 124 12 116/73 (87) 97 Nasal Cannula 3 07/25/17 15:00 124 12 128/84 (99) 97 Nasal Cannula 3 07/25/17 14:45 117 12 118/80 (93) 98 Nasal Cannula 3 07/25/17 14:30 123 13 125/85 (98) 97 Nasal Cannula 4 07/25/17 14:15 122 12 131/93 (106) 98 Nasal Cannula 4 07/25/17 14:00 110 12 115/77 (90) 99 Nasal Cannula 4 07/25/17 14:00 22 07/25/17 13:46 97.6 111 12 124/85 (98) 89 Nasal Cannula 2 (Obdulia Sandoval) Physical Exam General: Ms. Machuca is in no obvious distress during examination. Neuro: Awake, alert and oriented to person, place, and time. Speech is clear and fluent. Cranial nerve: pupils equal, round, and reactive to light. Mild left supranuclear palsy. Gross hearing is intact, bilaterally, to finger rub HEENT: Normocephalic. Gross hearing intact bilaterally. Nonicteric sclera. Neck: soft, supple Musculoskeletal: moves major muscle groups of lower extremities Respiratory: nonlabored breathing Skin: warm and dry, no cyanosis. SEDA drain in place with moderate drainage. (Obdulia Sandoval) Medications Current Medications Current Medications Medications (Trade) Dose Ordered Sig/April Route PRN Reason Start Time Stop Time Status Last Admin Dose Admin Vancomycin/Sodium Chloride 200 ml @ 200 mls/hr GASOLINE DRAGLINE OPERATOR IV 07/25/17 07:15 07/28/17 07:14 07/25/17 08:40 Lactated Ringer's 1,000 ml @ 30 mls/hr Q24H PRN IV SEE LABEL COMMENTS 07/25/17 07:15 07/28/17 07:14 07/25/17 08:30 Sodium Chloride 500 ml @ 30 mls/hr [id number] PRN IV SEE LABEL COMMENTS 07/25/17 07:15 07/28/17 07:14 Metoprolol Tartrate (Lopressor) 25 mg GASOLINE DRAGLINE OPERATOR PRN PO SEE LABEL COMMENTS 07/25/17 07:15 07/28/17 07:14 Povidone Iodine (Betadine 5% Antisepsis Kit) 1 applic GASOLINE DRAGLINE OPERATOR PRN EACH NARE SEE LABEL COMMENTS 07/25/17 07:15 07/28/17 07:14 07/25/17 08:30 Chlorhexidine Gluconate (Chlorhexidine 2% Cloth) 3 pack GASOLINE DRAGLINE OPERATOR PRN TOPICAL SEE LABEL COMMENTS 07/25/17 07:15 07/28/17 07:14 07/25/17 07:30 Duloxetine HCl (Cymbalta Dr) 20 mg DAILY PO 07/26/17 09:00 07/26/17 09:13 Temazepam (Restoril) 15 mg HS PRN PO INSOMNIA 07/25/17 21:00 Trazodone HCl (Desyrel) 100 mg HS PO 07/25/17 21:00 07/25/17 22:04 Naloxone HCl (Narcan Inj) 0.4 mg UNSCH PRN IV PUSH RESPIRATORY RATE LESS THAN 10 07/25/17 13:45 Diphenhydramine HCl (Benadryl Inj) 25 mg Q6H PRN IV PUSH ITCHING 07/25/17 13:45 Hydromorphone HCl (Dilaudid FOOD MIXER REPAIRER Inj) 6 mg UNSCH IV 07/25/17 13:45 07/26/17 09:23 FOOD MIXER REPAIRER Dosage Infused (Pha) 1 Q8HR .XX 07/25/17 14:00 07/26/17 05:38 Sodium Chloride 1,000 ml @ 100 mls/hr Q10H IV 07/25/17 14:24 07/26/17 00:24 Bisacodyl (Dulcolax Supp) 10 mg DAILY PRN RECTAL SEVERE CONSTIPATION 07/25/17 14:30 Docusate Sodium (Colace) 100 mg BID PO 07/25/17 21:00 07/26/17 09:13 Magnesium Hydroxide (Milk Of Magnesia Liq) 30 ml DAILY PRN PO CONSTIPATION 07/25/17 14:30 Pantoprazole Sodium (Protonix) 40 mg DAILY PO 07/26/17 09:00 07/26/17 09:13 Ondansetron HCl (Zofran Inj) 4 mg Q6H PRN IV PUSH NAUSEA OR VOMITING 07/25/17 14:30 Morphine Sulfate (Morphine Inj) 2 mg Q2H PRN IV PUSH breakthrough pain 07/25/17 14:30 Cyclobenzaprine HCl (Flexeril) 10 mg Q8H PRN PO MUSCLE SPASM 07/25/17 14:30 07/26/17 09:13 Clonidine (Catapres) 0.1 mg Q6H PRN PO/NG SYS BP GREATER THAN 170 MMHG 07/25/17 14:30 Acetaminophen (Tylenol) 650 mg Q4H PRN PO TEMPERATURE > 101.5 F 07/25/17 14:30 Menthol ([place] Bianca) 1 lozenge UNSCH PRN BUCCAL SORE THROAT 07/25/17 14:30 Albuterol Sulfate (Albuterol Neb) 2.5 mg Q4HR NEB PRN INH WHEEZING 07/25/17 14:30 Chlorhexidine Gluconate (Hibiclens 4% Top Soln) 1 applic HS TOP 07/25/17 21:00 07/27/17 21:01 07/25/17 22:04 Acetaminophen/ Hydrocodone Bitart ([place] 10-325 Mg) 1 tab Q4H PRN PO PAIN SCALE 3 TO 5 07/25/17 14:30 07/26/17 05:37 Acetaminophen/ Hydrocodone Bitart ([place] 10-325 Mg) 2 tab Q4H PRN PO PAIN SCALE 6 TO 10 07/25/17 14:30 07/26/17 09:13 Miscellaneous Information ([facility] [place] [facility]) ALL NURSING DEPARTME... UNSCH PRN .XX SEE LABEL COMMENTS 07/25/17 13:48 07/26/17 13:47 Acetaminophen 100 ml @ 400 mls/hr Q6H PRN IV PAIN 1-2 07/25/17 15:45 Enoxaparin Sodium (Lovenox Inj) 20 mg Q24H SQ 07/26/17 09:30 UNV (Obdulia Sandoval) Medical Decision Making MDM Remarks 42 year old female s/p L4-L5 PLIF 07/25/17 for L4-5 spondylolisthesis (Obdulia Sandoval) Plan Plan Remarks cont Dilaudid FOOD MIXER REPAIRER, oral pain medications as needed start mobilizing out of bed with LSO, PT eval DC Winn catheter SCDs and TEDs for DVT prophylaxis Continue SEDA draining to suction Protonix for GI prophylaxis Appreciate medical assistance (Obdulia Sandoval) Attending Statement The exam, history, and the medical decision-making described in the above note were completed with the assistance of the mid-level provider. I reviewed and agree with the findings presented. I attest that I had a [id number] encounter with the patient on the same day, and personally performed and documented my assessment and findings in the medical record. (Des Vega MD) Obdulia Sandoval July 26, 2017 12:39 Des Vega MD July 28, 2017 16:04
[2017-07-26 15:49] LABS: HEMOGLOBIN A1C 4.6 % (4.3-6.0)
[2017-07-26] MEDS: ENOXAPARIN SODIUM 40 MG/0.4 ML SYRINGE SQ SCH (15:58)
[2017-07-26 16:23] VITALS: BP 95/57; PULSE 94; RESP 18; TEMP 98.2; O2SAT 97
[2017-07-26 20:00] VITALS: BP 113/69; PULSE 93; RESP 17; TEMP 98.2; O2SAT 98
[2017-07-26] MEDS: traZODone HCL 100 MG TAB PO SCH (20:37)
[2017-07-26] MEDS: CHLORHEXIDINE GLUCONATE 4% SOLN 120 ML BTL TOP SCH (21:00)
[2017-07-27] VITALS (7 sets, daily range): BP systolic 81–122; BP diastolic 51–67; PULSE 86–100; RESP 18–20; TEMP 98–98.9; O2SAT 95–98
[2017-07-27] MEDS: CYCLOBENZAPRINE HCL 10 MG TAB PO PRN ×3 (02:52→20:36)
[2017-07-27] MEDS: ACETAMINOPHEN/HYDROcodone 325 MG/10 MG TAB PO PRN ×4 (04:17→19:50)
[2017-07-27] MEDS: PCA - TOTAL MG DILAUDID DELIVERED PER SHIFT SCH ×3 (06:00→22:00)
[2017-07-27] MEDS: SODIUM CHLOR 0.9% 1000 ML INJ 1,000 ML IV SCH ×2 (06:24→17:44)
[2017-07-27] MEDS: PANTOPRAZOLE SOD 40 MG DELAYED RELEASE TAB PO SCH (09:23)
[2017-07-27] MEDS: DULoxetine HCl DR 20 MG CAP PO SCH (09:23)
[2017-07-27] MEDS: DOCUSATE SODIUM 100 MG CAP PO SCH ×2 (09:23→20:36)
[2017-07-27] MEDS: HYDROmorphone HCL PCA 6 MG/30 ML IV SCH (09:28)
--- NOTE | 2017-07-27 10:35 | HHI.NSPN ---
(Obdulia Sandoval) Note Status Status: Progress Note (Obdulia Sandoval) Interval History Interval History Ms. Machuca underwent a L4-L5 laminectomy, interbody arthrodesis using PEEK cage and autologous bone graft, L4-L5 instrumental fixation using transpedicular screws and rods, L4-L5 posterolateral fusion using autologous bone graft and demineralized bone matrix, microsurgical dissection on July 25, 2017 for L4-5 spondylolisthesis. 50: reports minimal achiness in her legs with paresthesias, surgical pain controlled on SUPERVISOR DRY CLEANING. 07/27: still with moderate surgical pain, persistent paresthesias in legs and feet. ambulating to bathroom. continues to use SUPERVISOR DRY CLEANING for pain control. (Obdulia Sandoval) Labs, Micro, & Vital Signs Results Date Time Temp Pulse Resp B/P (MAP) Pulse Ox O2 Delivery O2 Flow Rate FiO2 07/27/17 09:28 15 07/27/17 08:33 98.4 87 18 98/65 (76) 97 07/27/17 06:00 17 07/27/17 04:00 98.1 95 20 116/67 (83) 98 07/27/17 01:10 94/62 (73) 07/27/17 00:00 98.0 90 20 81/51 (61) 95 07/26/17 22:00 18 07/26/17 20:00 98.2 93 17 113/69 (84) 98 07/26/17 18:56 18 07/26/17 18:54 18 07/26/17 18:24 18 07/26/17 16:23 98.2 94 18 95/57 (70) 97 07/26/17 13:49 18 07/26/17 12:15 98.3 111 19 114/58 (76) 98 Constitutional Vital Signs Date Time Temp Pulse Resp B/P (MAP) Pulse Ox O2 Delivery O2 Flow Rate FiO2 07/27/17 09:28 15 07/27/17 08:33 98.4 87 18 98/65 (76) 97 07/27/17 06:00 17 07/27/17 04:00 98.1 95 20 116/67 (83) 98 07/27/17 01:10 94/62 (73) 07/27/17 00:00 98.0 90 20 81/51 (61) 95 07/26/17 22:00 18 07/26/17 20:00 98.2 93 17 113/69 (84) 98 07/26/17 18:56 18 07/26/17 18:54 18 07/26/17 18:24 18 07/26/17 16:23 98.2 94 18 95/57 (70) 97 07/26/17 13:49 18 07/26/17 12:15 98.3 111 19 114/58 (76) 98 (Obdulia Sandoval) Review of Systems Constitutional: DENIES: Fever Musculoskeletal: COMPLAINS OF: Muscle aches, Stiffness, Back pain (Obdulia Sandoval) Physical Exam General: Ms. Machuca eating her breakfast. Neuro: Awake, alert and oriented to person, place, and time. Speech is clear and fluent. Cranial nerve: pupils equal, round, and reactive to light. Mild left supranuclear palsy. Gross hearing is intact, bilaterally, to finger rub HEENT: Normocephalic. Gross hearing intact bilaterally. Nonicteric sclera. Neck: soft, supple Musculoskeletal: moves major muscle groups of lower extremities with generalized weakness Respiratory: nonlabored breathing Skin: warm and dry, no cyanosis. SEDA drain in place with minimal drainage. (Obdulia Sandoval) Medications Current Medications Current Medications Medications (Trade) Dose Ordered Sig/April Route PRN Reason Start Time Stop Time Status Last Admin Dose Admin Vancomycin/Sodium Chloride 200 ml @ 200 mls/hr PUBLIC SERVICE DIRECTOR IV 07/25/17 07:15 07/28/17 07:14 07/25/17 08:40 Lactated Ringer's 1,000 ml @ 30 mls/hr Q24H PRN IV SEE LABEL COMMENTS 07/25/17 07:15 07/28/17 07:14 07/25/17 08:30 Sodium Chloride 500 ml @ 30 mls/hr [id number] PRN IV SEE LABEL COMMENTS 07/25/17 07:15 07/28/17 07:14 Metoprolol Tartrate (Lopressor) 25 mg PUBLIC SERVICE DIRECTOR PRN PO SEE LABEL COMMENTS 07/25/17 07:15 07/28/17 07:14 Povidone Iodine (Betadine 5% Antisepsis Kit) 1 applic PUBLIC SERVICE DIRECTOR PRN EACH NARE SEE LABEL COMMENTS 07/25/17 07:15 07/28/17 07:14 07/25/17 08:30 Chlorhexidine Gluconate (Chlorhexidine 2% Cloth) 3 pack PUBLIC SERVICE DIRECTOR PRN TOPICAL SEE LABEL COMMENTS 07/25/17 07:15 07/28/17 07:14 07/25/17 07:30 Duloxetine HCl (Cymbalta Dr) 20 mg DAILY PO 07/26/17 09:00 07/27/17 09:23 Temazepam (Restoril) 15 mg HS PRN PO INSOMNIA 07/25/17 21:00 Trazodone HCl (Desyrel) 100 mg HS PO 07/25/17 21:00 07/26/17 20:37 Naloxone HCl (Narcan Inj) 0.4 mg UNSCH PRN IV PUSH RESPIRATORY RATE LESS THAN 10 07/25/17 13:45 Diphenhydramine HCl (Benadryl Inj) 25 mg Q6H PRN IV PUSH ITCHING 07/25/17 13:45 Hydromorphone HCl (Dilaudid SUPERVISOR DRY CLEANING Inj) 6 mg UNSCH IV 07/25/17 13:45 07/27/17 09:28 SUPERVISOR DRY CLEANING Dosage Infused (Pha) 1 Q8HR .XX 07/25/17 14:00 07/27/17 06:00 Sodium Chloride 1,000 ml @ 100 mls/hr Q10H IV 07/25/17 14:24 07/26/17 22:15 Bisacodyl (Dulcolax Supp) 10 mg DAILY PRN RECTAL SEVERE CONSTIPATION 07/25/17 14:30 Docusate Sodium (Colace) 100 mg BID PO 07/25/17 21:00 07/27/17 09:23 Magnesium Hydroxide (Milk Of Magnesia Liq) 30 ml DAILY PRN PO CONSTIPATION 07/25/17 14:30 Pantoprazole Sodium (Protonix) 40 mg DAILY PO 07/26/17 09:00 07/27/17 09:23 Ondansetron HCl (Zofran Inj) 4 mg Q6H PRN IV PUSH NAUSEA OR VOMITING 07/25/17 14:30 Morphine Sulfate (Morphine Inj) 2 mg Q2H PRN IV PUSH breakthrough pain 07/25/17 14:30 Cyclobenzaprine HCl (Flexeril) 10 mg Q8H PRN PO MUSCLE SPASM 07/25/17 14:30 07/27/17 02:52 Clonidine (Catapres) 0.1 mg Q6H PRN PO/NG SYS BP GREATER THAN 170 MMHG 07/25/17 14:30 Acetaminophen (Tylenol) 650 mg Q4H PRN PO TEMPERATURE > 101.5 F 07/25/17 14:30 Menthol ([place] Bianca) 1 lozenge UNSCH PRN BUCCAL SORE THROAT 07/25/17 14:30 Albuterol Sulfate (Albuterol Neb) 2.5 mg Q4HR NEB PRN INH WHEEZING 07/25/17 14:30 Chlorhexidine Gluconate (Hibiclens 4% Top Soln) 1 applic HS TOP 07/25/17 21:00 07/27/17 21:01 07/26/17 21:00 Acetaminophen/ Hydrocodone Bitart ([place] 10-325 Mg) 1 tab Q4H PRN PO PAIN SCALE 3 TO 5 07/25/17 14:30 07/26/17 05:37 Acetaminophen/ Hydrocodone Bitart ([place] 10-325 Mg) 2 tab Q4H PRN PO PAIN SCALE 6 TO 10 07/25/17 14:30 07/27/17 04:17 Acetaminophen 100 ml @ 400 mls/hr Q6H PRN IV PAIN 1-2 07/25/17 15:45 07/27/17 09:30 Enoxaparin Sodium (Lovenox Inj) 40 mg Q24H SQ 07/26/17 16:00 07/26/17 15:58 Gabapentin (Neurontin) 300 mg TID PO 07/27/17 13:00 Ketorolac Tromethamine (Toradol Inj) 30 mg Q6HR IV PUSH 07/27/17 12:00 07/28/17 12:00 (Obdulia Sandoval) Medical Decision Making MDM Remarks 42 year old female s/p L4-L5 PLIF 07/25/17 for L4-5 spondylolisthesis (Obdulia Sandoval) Plan Plan Remarks cont Dilaudid SUPERVISOR DRY CLEANING, oral pain medications as needed cont mobilizing out of bed with LSO, PT recs HHC with PT dc SEDA drain SCDs and TEDs for DVT prophylaxis, sq lovenox Protonix for GI prophylaxis 24 hour Toradol to aid in pain, start Neurontin 300 mg tid (Obdulia Sandoval) Attending Statement The exam, history, and the medical decision-making described in the above note were completed with the assistance of the mid-level provider. I reviewed and agree with the findings presented. I attest that I had a [id number] encounter with the patient on the same day, and personally performed and documented my assessment and findings in the medical record. (Des Vega MD) Obdulia Sandoval July 27, 2017 10:34 Des Vega MD July 28, 2017 16:05
[2017-07-27 14:01] LABS: FREE T3 1.89 PG/ML (2.18-3.98); FREE T4 0.92 NG/DL (0.76-1.46)
[2017-07-27] MEDS: KETOROLAC TROMETHAMINE 30 MG/ML (IVP) VIAL IV PUSH SCH ×2 (14:19→17:42)
[2017-07-27] MEDS: GABAPENTIN 300 MG CAP PO SCH ×2 (14:19→17:41)
--- NOTE | 2017-07-27 14:44 | HHI.PR ---
Subjective Remarks Follow up back surgery. Patient states her legs are very achy and she is painful. States she is taking one day at a time. Denies any chest pain. Objective Vitals Vital Signs Date Time Temp Pulse Resp B/P (MAP) Pulse Ox O2 Delivery O2 Flow Rate FiO2 07/27/17 14:00 15 07/27/17 11:49 98.6 100 18 104/59 (74) 97 07/27/17 09:28 15 07/27/17 08:33 98.4 87 18 98/65 (76) 97 07/27/17 06:00 17 07/27/17 04:00 98.1 95 20 116/67 (83) 98 07/27/17 01:10 94/62 (73) 07/27/17 00:00 98.0 90 20 81/51 (61) 95 07/26/17 22:00 18 07/26/17 20:00 98.2 93 17 113/69 (84) 98 07/26/17 18:56 18 07/26/17 18:54 18 07/26/17 18:24 18 07/26/17 16:23 98.2 94 18 95/57 (70) 97 I/O 07/26/17 07/26/17 07/26/17 07/27/17 07/27/17 07/27/17 07:00 15:00 23:00 07:00 15:00 23:00 Intake Total 810 ml 1488 ml 572 ml Output Total 1530 ml 1030 ml 65 ml Balance -720 ml -1030 ml 1488 ml 507 ml Intake Oral 320 ml 960 ml 360 ml IV Total 490 ml 528 ml 212 ml Output Urine Total 1500 ml 1000 ml Drainage Total 30 ml 30 ml 65 ml # Voids 1 1 3 # Bowel Movements 0 0 Result Diagram: 07/26/17 0554 07/26/17 0554 Objective Remarks GENERAL: laying in bed, sore, with revising clerk CARDIOVASCULAR: Regular rate and rhythm. RESPIRATORY: No accessory muscle use. Clear to auscultation. Breath sounds equal bilaterally. GASTROINTESTINAL: Abdomen soft, non-tender, nondistended. Hepatic and splenic margins not palpable. MUSCULOSKELETAL: Extremities without clubbing, cyanosis, or edema. No obvious deformities. pedal edema, numbness in left lower extremity, pulses palpable A/P Assessment and Plan S/P L4-L5 laminectomy by Dr. Vega, interbody arthrodesis using peek cage and autologous bone graft, L4-L5 instrumentation all fixation using transpedicular screws and rods, L4-L5 posterior lateral fusion using autologous bone graft and demineralized bone matrix, and microsurgical dissection -Plan per neurosurgery -LSO brace -Pain control per neurosurgery -07/27 Toradol IV added per neurosurgery Chronic anxiety and depression -Cont home medications Tobacco abuse -recommend smoking cessation Fibromyalgia , chronic -continued medications at home for this except for pain control will defer that to neurosurgery -Continue Cymbalta, trazodone and temazepam Discharge Planning Per neurosurgery Edel Whitley July 27, 2017 14:44
[2017-07-27] MEDS: ENOXAPARIN SODIUM 40 MG/0.4 ML SYRINGE SQ SCH (15:17)
[2017-07-27] MEDS ORDERED: WALKER WHEELS/F1 MIS (16:35)
--- NOTE | 2017-07-27 16:36 | HHI.FF ---
Face to Face Verification Diagnosis: (1) S/P lumbar spinal fusion Physical Therapy Order: Improve ambulation Home Health Nursing Order: Signs/symptoms of disease process Medication education-adverse effect Wound care and dressing changes Nursing assessment with vital signs I have seen patient Mary Machuca on 07/27/17. My clinical findings support the need for the requested home health care services because: Ltd mobility - disease progression Deconditioned w/ increased weakness High risk of falls I certify that my clinical findings support that this patient is homebound because: Post-op weakness Obdulia Sandoval July 27, 2017 16:36
[2017-07-27] MEDS: traZODone HCL 100 MG TAB PO SCH (20:36)
[2017-07-27] MEDS: CHLORHEXIDINE GLUCONATE 4% SOLN 120 ML BTL TOP SCH (20:37)
[2017-07-28] VITALS: BP 111/70; PULSE 92; RESP 20; TEMP 98.1; O2SAT 98
[2017-07-28] MEDS: KETOROLAC TROMETHAMINE 30 MG/ML (IVP) VIAL IV PUSH SCH ×3 (01:03→13:33)
[2017-07-28] MEDS: ACETAMINOPHEN/HYDROcodone 325 MG/10 MG TAB PO PRN ×4 (01:05→14:21)
[2017-07-28] MEDS: SODIUM CHLOR 0.9% 1000 ML INJ 1,000 ML IV SCH ×3 (02:24→12:24)
[2017-07-28 04:00] VITALS: BP 107/67; PULSE 85; RESP 20; TEMP 98.2; O2SAT 96
[2017-07-28] MEDS: CYCLOBENZAPRINE HCL 10 MG TAB PO PRN (04:06)
[2017-07-28] MEDS: HYDROmorphone HCL PCA 6 MG/30 ML IV SCH (04:14)
[2017-07-28] MEDS: PCA - TOTAL MG DILAUDID DELIVERED PER SHIFT SCH (06:00)
[2017-07-28 08:00] VITALS: BP 129/62; PULSE 84; RESP 16; TEMP 98.3; O2SAT 98
[2017-07-28] MEDS ORDERED: HYDR-3583 PO (09:13)
[2017-07-28] MEDS ORDERED: NEUR300C PO (09:13)
[2017-07-28] MEDS: DULoxetine HCl DR 20 MG CAP PO SCH (09:31)
[2017-07-28] MEDS: PANTOPRAZOLE SOD 40 MG DELAYED RELEASE TAB PO SCH (09:31)
[2017-07-28] MEDS: DOCUSATE SODIUM 100 MG CAP PO SCH (09:31)
[2017-07-28] MEDS: GABAPENTIN 300 MG CAP PO SCH ×3 (09:31→17:41)
--- NOTE | 2017-07-28 11:16 | HHI.DS ---
Discharge Summary Admission Date July 25, 2017 at 06:48 Discharge Date: July 28, 2017 Admitting Diagnosis s/p lumbar fusion (1) S/P lumbar spinal fusion ICD Code: Z98.1 - Arthrodesis status Brief History Ms Machuca is a 42 year-old female who presented with intractable mechanical back pain and ariane evidence of L5 lower extremity radiculopathy. The patient has failed maximum nonsurgical management including multiple modalities of conservative treatment as well as pain management interventions by an interventional pain specialist. A surgical decompression and arthrodesis were indicated as a last resort CBC/BMP: 07/26/17 0554 07/26/17 0554 Significant Findings Laboratory Tests Test 07/26/17 05:54 07/27/17 13:07 Red Blood Count 3.55 MIL/MM3 (4.00-5.30) Hemoglobin 11.0 GM/DL (11.6-15.3) Hematocrit 32.7 % (35.0-46.0) Neutrophils (%) (Auto) 73.4 % (16.0-70.0) Blood Urea Nitrogen 6 MG/DL (7-18) Total Protein 5.4 GM/DL (6.4-8.2) Albumin 2.9 GM/DL (3.4-5.0) Calcium Level 8.0 MG/DL (8.5-10.1) Aspartate Amino Transf (AST/SGOT) 48 U/L (15-37) Alanine Aminotransferase (ALT/SGPT) 55 U/L (10-53) Thyroid Stimulating Hormone 3rd Gen 0.246 uIU/ML (0.358-3.740) Free Triiodothyronine (T3) pg/dL 1.89 PG/ML (2.18-3.98) Imaging Last Impressions Lumbar Spine X-Ray 07/25/17 0000 Signed Impressions: Service Date/Time: Tuesday, July 25, 2017 10:02 - CONCLUSION: Intraoperative image. Henry Stewart MD Hospital Course Ms. Machuca underwent a L4-L5 laminectomy, interbody arthrodesis using PEEK cage and autologous bone graft, L4-L5 instrumental fixation using transpedicular screws and rods, L4-L5 posterolateral fusion using autologous bone graft and demineralized bone matrix, microsurgical dissection on July 25, 2017 for L4-5 spondylolisthesis. Her surgery went well without complications, she will be discharged home with home health care in stable conditions. Pt Condition on Discharge: Stable Discharge Disposition: Disch w/ Home Health Serv Discharge Instructions DIET: Follow Instructions for: Heart Healthy Diet ACTIVITIES You can perform: Weight Bearing As [place] ADDITIONAL Activity Instructio: Avoid strenuous activities, heavy lifting over 5 lbs, overhead activities, repetitive bending, twisting, pushing, pulling or any activities which might result in stress over the spine. Avoid situation that will put at risk for falls. Use assistive device as needed for walking. Wear provided back brace when out of bed. New Medications: Walker with Front Wheels (Walker with Front Wheels) 1 Mis Mis EA .XX DIRECTED, #1 0 Refills Gabapentin (Neurontin) 300 Mg Cap 300 MG PO TID for Pain, #90 CAP 1 Refill Hydrocodone/Acetaminophen (Hydrocodone-Acetamin 10-325 mg) 10 Mg-325 Mg Tablet 1 TAB PO Q8H PRN for PAIN SCALE 1 TO 10, #90 TAB-CAP 0 Refills Continued Medications: Duloxetine DR (Jesus Manuelmbalta ) 20 Mg Capdr 20 MG PO DAILY, #30 CAP 0 Refills Oxycodone (Oxycodone) 5 Mg Cap 5 MG PO Q4H PRN for PAIN, CAP 0 Refills Temazepam (Restoril) 15 Mg Cap 15 MG PO HS PRN for INSOMNIA, #30 CAP 0 Refills Trazodone (Trazodone) 100 Mg Tablet 100 MG PO HS for Control Depression, #30 TAB 0 Refills Discontinued Medications: Meloxicam (Meloxicam) 7.5 Mg Tab 7.5 MG PO DAILY for Arthritis Pain, TAB 0 Refills Obdulia Sandoval July 28, 2017 11:16
--- NOTE | 2017-07-28 11:16 | HHI.DCPOC ---
Discharge Care Plan Diagnosis: (1) S/P lumbar spinal fusion Goals to Promote Your Health * To prevent worsening of your condition and complications * To maintain your health at the optimal level Directions to Meet Your Goals Take your medications as prescribed Follow your dietary instruction Follow activity as directed Keep your appointments as scheduled Take your immunizations and boosters as scheduled If your symptoms worsen call your PCP, if no PCP go to Urgent Care Center or Emergency Room Smoking is Dangerous to Your Health. Avoid second hand smoke Call the 24-hour hour crisis hotline for domestic abuse at Obdulia Sandoval July 28, 2017 11:16
--- NOTE | 2017-07-28 11:21 | HHI.NSPN ---
(Obdulia Sandoval) Note Status Status: Progress Note (Obdulia Sandoval) Interval History Interval History Ms. Machuca underwent a L4-L5 laminectomy, interbody arthrodesis using PEEK cage and autologous bone graft, L4-L5 instrumental fixation using transpedicular screws and rods, L4-L5 posterolateral fusion using autologous bone graft and demineralized bone matrix, microsurgical dissection on July 25, 2017 for L4-5 spondylolisthesis. 5/2: reports minimal achiness in her legs with paresthesias, surgical pain controlled on [employer]. 5/3: still with moderate surgical pain, persistent paresthesias in legs and feet. ambulating to bathroom. continues to use [employer] for pain control. 07/28: reports appears to be ambulating a bit better today, reports ready for dc home with [facility]. (Obdulia Sandoval) Labs, Micro, & Vital Signs Results Date Time Temp Pulse Resp B/P (MAP) Pulse Ox O2 Delivery O2 Flow Rate FiO2 07/28/17 08:00 98.3 84 16 129/62 (84) 98 07/28/17 06:00 17 07/28/17 04:50 18 07/28/17 04:14 18 07/28/17 04:00 98.2 85 20 107/67 (80) 96 07/28/17 00:00 98.1 92 20 111/70 (84) 98 07/27/17 22:00 17 07/27/17 20:00 98.1 86 20 122/56 (78) 98 07/27/17 16:00 98.9 94 18 98/56 (70) 96 07/27/17 14:00 15 07/27/17 11:49 98.6 100 18 104/59 (74) 97 Constitutional Vital Signs Date Time Temp Pulse Resp B/P (MAP) Pulse Ox O2 Delivery O2 Flow Rate FiO2 07/28/17 08:00 98.3 84 16 129/62 (84) 98 07/28/17 06:00 17 07/28/17 04:50 18 07/28/17 04:14 18 07/28/17 04:00 98.2 85 20 107/67 (80) 96 07/28/17 00:00 98.1 92 20 111/70 (84) 98 07/27/17 22:00 17 07/27/17 20:00 98.1 86 20 122/56 (78) 98 07/27/17 16:00 98.9 94 18 98/56 (70) 96 07/27/17 14:00 15 07/27/17 11:49 98.6 100 18 104/59 (74) 97 (Obdulia Sandoval) Review of Systems Musculoskeletal: COMPLAINS OF: Back pain Neurologic: COMPLAINS OF: Paresthesias (Obdulia Sandoval) Physical Exam General: In no acute distress, resting comfortably in bed Neuro: Alert and oriented. Speech is clear and fluent. Cranial nerve: pupils equal, round, and reactive to light. HEENT: Normocephalic. Gross hearing intact bilaterally. Nonicteric sclera. Neck: soft, supple Musculoskeletal: moves major muscle groups of lower extremities with generalized weakness Respiratory: nonlabored breathing Skin: warm and dry, no cyanosis. Wound with clean and dry Optifoam dressing. No drainage noted. (Obdulia Sandoval) Medications Current Medications Current Medications Medications (Trade) Dose Ordered Sig/April Route PRN Reason Start Time Stop Time Status Last Admin Dose Admin Duloxetine HCl (Cymbalta Dr) 20 mg DAILY PO 07/26/17 09:00 07/28/17 09:31 Temazepam (Restoril) 15 mg HS PRN PO INSOMNIA 07/25/17 21:00 Trazodone HCl (Desyrel) 100 mg HS PO 07/25/17 21:00 07/27/17 20:36 Naloxone HCl (Narcan Inj) 0.4 mg UNSCH PRN IV PUSH RESPIRATORY RATE LESS THAN 10 07/25/17 13:45 Diphenhydramine HCl (Benadryl Inj) 25 mg Q6H PRN IV PUSH ITCHING 07/25/17 13:45 Sodium Chloride 1,000 ml @ 100 mls/hr Q10H IV 07/25/17 14:24 07/28/17 04:07 Bisacodyl (Dulcolax Supp) 10 mg DAILY PRN RECTAL SEVERE CONSTIPATION 07/25/17 14:30 Docusate Sodium (Colace) 100 mg BID PO 07/25/17 21:00 07/28/17 09:31 Magnesium Hydroxide (Milk Of Magnesia Liq) 30 ml DAILY PRN PO CONSTIPATION 07/25/17 14:30 Pantoprazole Sodium (Protonix) 40 mg DAILY PO 07/26/17 09:00 07/28/17 09:31 Ondansetron HCl (Zofran Inj) 4 mg Q6H PRN IV PUSH NAUSEA OR VOMITING 07/25/17 14:30 Morphine Sulfate (Morphine Inj) 2 mg Q2H PRN IV PUSH breakthrough pain 07/25/17 14:30 Cyclobenzaprine HCl (Flexeril) 10 mg Q8H PRN PO MUSCLE SPASM 07/25/17 14:30 07/28/17 04:06 Clonidine (Catapres) 0.1 mg Q6H PRN PO/NG SYS BP GREATER THAN 170 MMHG 07/25/17 14:30 Acetaminophen (Tylenol) 650 mg Q4H PRN PO TEMPERATURE > 101.5 F 07/25/17 14:30 Menthol ([place]) 1 lozenge UNSCH PRN BUCCAL SORE THROAT 07/25/17 14:30 Albuterol Sulfate (Albuterol Neb) 2.5 mg Q4HR NEB PRN INH WHEEZING 07/25/17 14:30 Acetaminophen/ Hydrocodone Bitart ([place] 10-325 Mg) 1 tab Q4H PRN PO PAIN SCALE 3 TO 5 07/25/17 14:30 07/26/17 05:37 Acetaminophen/ Hydrocodone Bitart ([place] 10-325 Mg) 2 tab Q4H PRN PO PAIN SCALE 6 TO 10 07/25/17 14:30 07/28/17 10:20 Acetaminophen 100 ml @ 400 mls/hr Q6H PRN IV PAIN 1-2 07/25/17 15:45 07/27/17 09:30 Enoxaparin Sodium (Lovenox Inj) 40 mg Q24H SQ 07/26/17 16:00 07/27/17 15:17 Gabapentin (Neurontin) 300 mg TID PO 07/27/17 13:00 07/28/17 09:31 Ketorolac Tromethamine (Toradol Inj) 30 mg Q6HR IV PUSH 07/27/17 12:00 07/28/17 12:00 07/28/17 06:14 (Obdulia Sandoval) Medical Decision Making MDM Remarks 42 year old female s/p L4-L5 PLIF 07/25/17 for L4-5 spondylolisthesis (Obdulia Sandoval) Plan Plan Remarks dc [employer], cont oral pain medications prn cont LSO when out of bed, PT recs [facility] with PT replace optifoam dressing prior to dc home SCDs and TEDs for DVT prophylaxis, sq lovenox Protonix for GI prophylaxis cont Neurontin 300 mg tid, rx for dc provided Dr. Vega cleared for dc home with [facility] today f/u in office in 1 week dw pt wound care and activity restrictions (Obdulia Sandoval) Attending Statement The exam, history, and the medical decision-making described in the above note were completed with the assistance of the mid-level provider. I reviewed and agree with the findings presented. I attest that I had a [id number] encounter with the patient on the same day, and personally performed and documented my assessment and findings in the medical record. (Des Vega MD) Obdulia Sandoval July 28, 2017 11:21 Des Vega MD July 28, 2017 16:10
[2017-07-28 12:00] VITALS: BP 111/60; PULSE 87; RESP 16; TEMP 98.3; O2SAT 98
[2017-07-28 14:33] VITALS: RESP 18
[2017-07-28] MEDS: ENOXAPARIN SODIUM 40 MG/0.4 ML SYRINGE SQ SCH (16:17)
--- NOTE | 2017-07-28 16:29 | HHI.PR ---
Subjective Remarks Denies cp/sob c/o low back pain Denies fevers/chills denies diarrhea or constipation. Objective Vitals Vital Signs Date Time Temp Pulse Resp B/P (MAP) Pulse Ox O2 Delivery O2 Flow Rate FiO2 07/28/17 14:33 18 07/28/17 12:00 98.3 87 16 111/60 (77) 98 07/28/17 08:00 98.3 84 16 129/62 (84) 98 07/28/17 06:00 17 07/28/17 04:50 18 07/28/17 04:14 18 07/28/17 04:00 98.2 85 20 107/67 (80) 96 07/28/17 00:00 98.1 92 20 111/70 (84) 98 07/27/17 22:00 17 07/27/17 20:00 98.1 86 20 122/56 (78) 98 I/O 07/27/17 07/27/17 07/27/17 07/28/17 07/28/17 07/28/17 07:00 15:00 23:00 07:00 15:00 23:00 Intake Total 572 ml 720 ml 480 ml Output Total 65 ml Balance 507 ml 720 ml 480 ml Intake Oral 360 ml 720 ml 480 ml IV Total 212 ml Drainage Total 65 ml # Voids 3 4 3 # Bowel Movements 0 0 0 Result Diagram: 07/26/17 0554 07/26/17 0554 Imaging Last Impressions Lumbar Spine X-Ray 07/25/17 0000 Signed Impressions: Service Date/Time: Tuesday, July 25, 2017 10:02 - CONCLUSION: Intraoperative image. Henry Stewart MD Objective Remarks AAOx3 Clear lungs BL S1S2 RRR, no MRG surgical site on lumbar spine covered by dressing C/D/I no edema or calf tenderness BL A/P Problem List: (1) S/P lumbar spinal fusion ICD Code: Z98.1 - Arthrodesis status Assessment and Plan S/P L4-L5 laminectomy by Dr. Vega, interbody arthrodesis using peek cage and autologous bone graft, L4-L5 instrumentation all fixation using transpedicular screws and rods, L4-L5 posterior lateral fusion using autologous bone graft and demineralized bone matrix, and microsurgical dissection -Plan per neurosurgery -LSO brace -Pain control per neurosurgery -07/27 Toradol IV added per neurosurgery 07/28 Cleared to be DC by neurosurgery. Chronic anxiety and depression -Seems stable. Continue Cymbalta, temazepam. Tobacco abuse -recommend smoking cessation Fibromyalgia , chronic -continued medications at home for this except for pain control will defer that to neurosurgery -Continue Cymbalta, trazodone and temazepam Discharge Planning Cleared medically to be discharged home. Chirag Fernandes MD July 28, 2017 16:29
== END 2017-07-28 18:09 | disposition home health service (06) | DRG 455 ==
LOC: HSDI 06:48 → N06B 17:33
PROVIDERS: ADMIT Neurological Surgery; ATTEND Neurological Surgery
PROC: 0SG0071 Fusion of Lumbar Vertebral Joint with Autologous Tissue Substitute, Posterior Approach, Posterior Column, Open Approach (ICD-10-PCS; 2017-07-25)
PROC: 0SB20ZZ Excision of Lumbar Vertebral Disc, Open Approach (ICD-10-PCS; 2017-07-25)
PROC: 4A11X4G Monitoring of Peripheral Nervous Electrical Activity, Intraoperative, External Approach (ICD-10-PCS; 2017-07-25)
PROC: 0SG00AJ Fusion of Lumbar Vertebral Joint with Interbody Fusion Device, Posterior Approach, Anterior Column, Open Approach (ICD-10-PCS; principal; 2017-07-25 08:49)
DX: M43.16 Spondylolisthesis, lumbar region (principal); F32.9 Major depressive disorder, single episode, unspecified; F41.9 Anxiety disorder, unspecified; M79.7 Fibromyalgia; F17.210 Nicotine dependence, cigarettes, uncomplicated; J45.909 Unspecified asthma, uncomplicated; M48.061 Spinal stenosis, lumbar region without neurogenic claudication; M54.16 Radiculopathy, lumbar region; M19.90 Unspecified osteoarthritis, unspecified site; G89.29 Other chronic pain; Z98.84 Bariatric surgery status; Z86.73 Personal history of transient ischemic attack (TIA), and cerebral infarction without residual deficits
CPT/HCPCS: 72020; 72100; 76000; 80053; 83036; 83735; 84100; 84439; 84443; 84481; 85025; 86850; 86900; 86901; 94150; C1713; J0131; J0690; J1100; J1170; J1580; J1650; J1885; J2175; J2250; J2270; J2370; J2405; J3010; J3370; J7030; J7120; L0484